=== PATIENT | male | born 1970 | race African-American/Black ===

== ENCOUNTER 2019-11-28 13:48 | Outpatient (CLI) | payer MEDICAID ==
[~2019-11-28] VITALS: Ht 177.8 cm; Wt 90.3 kg
[2019-11-28 14:00] VITALS: BP 95/65
--- NOTE | 2019-11-28 17:29 | Consultation ---
DATE OF CONSULTATION: 11/28/2019 CONSULTING PHYSICIAN: Bryn Taveras MD. CHIEF COMPLAINT: Stool OB positive, need for screening colonoscopy, age 49. PAST MEDICAL HISTORY: 1. Hypercholesteremia. 2. Depression. PAST SURGICAL HISTORY: None. MEDICATIONS: Please see medication reconciliation list. FAMILY HISTORY: No family history of GI malignancies. SOCIAL HISTORY: Denies any alcohol. Occasionally smokes tobacco. Denies any IV drug abuse. ALLERGIES: No known drug allergies. REVIEW OF SYSTEMS: Positive for rectal bleeding. PHYSICAL EXAMINATION: VITAL SIGNS: Temperature 97.8, blood pressure 95/65, pulse 64, respirations 20. HEENT: Normocephalic and atraumatic. Sclerae anicteric. NECK: Supple. No evidence of obvious lymphadenopathy. CARDIOVASCULAR: Regular rate and rhythm. Plus S1, S2. LUNGS: Clear to auscultation bilaterally. ABDOMEN: Positive bowel sounds. Soft and nontender. No rebound. No guarding. No peritoneal sign. EXTREMITIES: No cyanosis. No clubbing. No edema. ASSESSMENT AND PLAN: This is a 49-year-old male who has rectal bleeding, has a stool OB positive for blood and needs endoscopy and colonoscopy. Plan to schedule when authorization is obtained. Patient was informed of the risks and benefits of procedure and then he was given the prescription for colonoscopy. Bryn Taveras M.D. DR: ERENDIRA JOB#: [id number] CC:
[2019-11-29] MEDS ORDERED: BENADRYL25 MG ORAL (09:21)
[2019-11-29] MEDS ORDERED: ZOLOFT100 MG ORAL (09:21)
[2019-11-29] MEDS ORDERED: ABILIFY10 MG ORAL (09:21)
== END 2019-11-28 15:55 | disposition home or self-care (01) ==
LOC: PAN 13:48
DX: K92.1 Melena (principal); E78.00 Pure hypercholesterolemia, unspecified; F32.9 Major depressive disorder, single episode, unspecified; K62.5 Hemorrhage of anus and rectum
CPT/HCPCS: G0463